=== PATIENT | female | born 1935 | race Caucasian/White ===

== ENCOUNTER 2024-04-08 10:47 | Emergency (ER) | payer MEDICARE, OTHER ==
[~2024-04-08] VITALS: Ht 162.6 cm; Wt 64.3 kg
[2024-04-08] MEDS ORDERED: SOTA80TA32 PO ×2 (11:23→16:42)
[2024-04-08] MEDS ORDERED: HYDR-3490 PO (11:23)
[2024-04-08] MEDS ORDERED: LOSA25TA13 PO (11:23)
[2024-04-08] MEDS ORDERED: ATOR1TAB19 PO (11:23)
[2024-04-08] MEDS ORDERED: ELIQ5TAB PO (11:23)
[2024-04-08 14:14] LABS: HEMATOCRIT 42.5 % (36.0-47.0); HEMOGLOBIN 14.3 g/dl (12.0-15.5); MEAN CORPUSCULAR HEMOGLOBIN 31.8 pg (27.0-33.0); MEAN CORPUSCULAR HGB CONC 33.6 g/dl (32.0-36.5); MEAN CORPUSCULAR VOLUME 94.4 fl (80.0-96.0); PLATELET COUNT, AUTOMATED 105 10^3/uL (150-450); WHITE BLOOD COUNT 9.5 10^3/uL (4.0-10.0)
[2024-04-08 14:37] LABS: BLOOD UREA NITROGEN 15 MG/DL (9-23); CALCIUM LEVEL 8.6 MG/DL (8.3-10.6); CARBON DIOXIDE LEVEL 30 MMOL/L (20-31); CHLORIDE LEVEL 95 MMOL/L (98-107); CREATININE FOR GFR 0.49 MG/DL (0.55-1.30); GLOMERULAR FILTRATION RATE > 60.0 (>32); GLUCOSE, FASTING 139 MG/DL (74-106); POTASSIUM SERUM 4.4 MMOL/L (3.5-5.1); SODIUM LEVEL 131 MMOL/L (136-145)
[2024-04-08 14:58] LABS: ATYPICAL LYMPH 5 % (0-5); LYMPHOCYTES 11 % (16-44); MONOCYTES 4 % (0-5); NEUTROPHILS 78 % (28-66)
[2024-04-08 15:00] LABS: PLATELET ESTIMATE DECREASED (NORMAL)
[2024-04-08 15:08] LABS: CK-MB VALUE MASS < 1.0 NG/ML (<3.6)
[2024-04-08 15:12] LABS: THYROID STIMULATING HORMONE 1.424 uIU/ML (0.55-4.78)
[2024-04-08] MEDS ORDERED: DIGOXIN 0.25 MG TAB PO ONE (15:20)
[2024-04-08 15:21] LABS: CPK CREATINE PHOSPHOKINASE 71 U/L (34-145)
[2024-04-08] MEDS: DIGOXIN INJ 0.5 MG/2 ML AMP IV STA (15:48)
[2024-04-08 17:01] VITALS: BP 114/58; TEMP 97.9; O2SAT 93
== END 2024-04-08 17:01 | disposition home or self-care (01) ==
LOC: M ED 10:47
DX: I48.91 Unspecified atrial fibrillation (principal); I45.10 Unspecified right bundle-branch block; I10 Essential (primary) hypertension; E78.5 Hyperlipidemia, unspecified; Z79.899 Other long term (current) drug therapy
CPT/HCPCS: 71046; 71250; 80048; 82550; 82553; 83880; 84443; 84484; 85025; 87486; 87581; 87633; 87798; 93005; 93041; 96374; 99284; J1160